=== PATIENT | female | born 1965 | race Hispanic/Latino ===

== ENCOUNTER 2017-05-10 14:22 | Outpatient (CLI) | payer OTHER ==
--- NOTE | 2017-05-10 15:40 | MMO ---
BILATERAL SCREENING MAMMOGRAM: Indication: Annual exam. Comparison: 10-27-14, 04-15-16 FINDINGS: This study is interpreted with the assistance of computer aided detection. The breast parenchyma is heterogeneously dense which limits the sensitivity of mammography. There ar e benign scattered densities seen within both the right and left breasts. There are vascular calcifi cations bilaterally. No suspicious mass, cluster of microcalcifications, or area or architectural distortion evident. IMPRESSION: BIRADS 2 - benign. Recommend routine annual mammographic screening. POS: ANNA MARIE
--- NOTE | 2017-05-10 15:44 | BD ---
BONE DENSITOMETRY USING DEXA: HISTORY: Screening for osteoporosis. FINDINGS: Lumbar Spine: BMD (g/cm2) L1 0.843 T-Score: -0.3 Z-Score: -0.7 L2 0.954 T-Score: -0.7 Z-Score: 0.0 L3 0.963 T-Score: -1.1 Z-Score: -0.3 L4 1.005 T-Score: -0.5 Z-Score: 0.3 L1-L4 0.949 T-Score: -0.9 Z-Score: 0.2 Femoral Neck: 0.741 T-Score: -1.0 Z-Score: -0.2 Total Femur: 0.905 T-Score: -0.3 Z-Score: 0.2 Impression: Normal bone mineral density. No evidence of osteopenia/osteoporosis. POS: [facility]
== END 2017-05-10 14:23 | disposition home or self-care (01) ==
LOC: MAMMO 14:22
PROVIDERS: ATTEND Internal Medicine
DX: Z12.31 Encounter for screening mammogram for malignant neoplasm of breast (principal); Z13.820 Encounter for screening for osteoporosis
CPT/HCPCS: 77067; 77080; G0202

== ENCOUNTER 2018-10-29 10:42 | Outpatient (CLI) | payer OTHER, SELFPAY ==
--- NOTE | 2018-10-31 11:11 | MMO ---
Bilateral MAMMO Bilat Screen [facility]. CLINICAL HISTORY: Patient is 53 years old and is seen for screening. The patient has no family history of breast cancer. The patient has no personal history of cancer. VIEWS: The views performed were: bilateral craniocaudal with tomosynthesis and bilateral mediolateral oblique with tomosynthesis. FILMS COMPARED: The present examination has been compared to prior imaging studies performed at [facility] on 01/08/2011, 10/27/2014, 04/13/2016 and 05/10/2017. MAMMOGRAM FINDINGS: There are scattered fibroglandular densities. There are stable benign appearing calcifications seen in both breasts. There are no suspicious masses, calcifications or areas of architectural distortion. There are no suspicious masses, suspicious calcifications, or new areas of architectural distortion. IMPRESSION: THERE IS NO MAMMOGRAPHIC EVIDENCE OF MALIGNANCY. A ROUTINE FOLLOW-UP MAMMOGRAM IN 1 YEAR IS RECOMMENDED. THE RESULTS OF THIS EXAM WERE SENT TO THE PATIENT. ACR BI-RADS Category 2 - Benign finding MAMMOGRAPHY NOTE: 1. A negative mammogram report should not delay a biopsy if a dominant of clinically suspicious mass is present. 2. Approximately 10% to 15% of breast cancers are not detected by mammography. 3. Adenosis and dense breasts may obscure an underlying neoplasm.
== END 2018-10-29 10:43 | disposition home or self-care (01) ==
LOC: BICMAMMO 10:42
PROVIDERS: ATTEND Internal Medicine
DX: Z12.31 Encounter for screening mammogram for malignant neoplasm of breast (principal)
CPT/HCPCS: 77063; 77067

== ENCOUNTER 2019-05-15 08:22 | Outpatient (CLI) | payer OTHER ==
[2019-05-15 10:25] LABS: #Lymphocytes 2.1 thou/uL (1.20-3.40); #Monocytes 0.6 thou/uL (0.11-0.59); #Neutrophils 3.4 thou/uL (1.40-6.50); %Basophils 0.3 % (0.0-1.0); %Eosinophils 0.8 % (0.0-10.0); %Lymphocytes 34.9 % (21.0-51.0); %Monocytes 9.1 % (0.0-10.0); Hemoglobin 13.1 g/dL (12.0-16.0); Mean Corpuscular HGB CONC 32.7 g/dL (32.0-36.0); Mean Corpuscular Hemoglobin 28.8 pg (27.0-31.0); Mean Corpuscular Volume 88.1 fL (78.0-98.0); Mean Platelet Volume 9.8 fL (7.4-10.4); Platelet Count 181 thou/uL (130-400); RBC Distribution Width 12.1 % (11.5-14.5); Red Blood Cell (RBC) Count 4.54 mill/uL (4.20-5.40); White Blood Cell (WBC) Count 6.1 thou/uL (4.8-10.8)
[2019-05-15 10:40] LABS: Hemoglobin A1c 5.2 % (4.0-6.0)
--- NOTE | 2019-05-15 10:43 | RAD ---
PA AND LATERAL VIEWS CHEST: HISTORY: Preoperative evaluation. COMPARISON: 03/19/2010 FINDINGS: The heart size is normal. The lungs are well expanded without lobar consolidation, pneumothoraces or pleural effusions. There are mild degenerative changes in the spine. IMPRESSION: No radiographic evidence of acute cardiopulmonary process. POS: [facility]
[2019-05-15 10:44] LABS: ALT (SGPT) 7 U/L (8-55); AST (SGOT) 16 U/L (5-34); Albumin 4.4 g/dL (3.5-5.0); Alkaline Phosphatase 67 U/L (40-110); Anion Gap 12 mmol/L (10-20); BUN (Urea Nitrogen) 13 mg/dL (9.8-20.1); Bilirubin, Direct 0.3 mg/dL (0.1-0.3); Bilirubin, Total 0.9 mg/dL (0.2-1.2); Calc. Creatinine Clearance 0 mL/min (70-130); Carbon Dioxide 26 mmol/L (22-29); Chloride 104 mmol/L (98-107); Estimated GFR-MDRD Greater than 90; Globulin 2.5 g/dL (2.4-3.5); Glucose 81 mg/dL (70-105); Potassium 4.3 mmol/L (3.5-5.1); Protein, Total 6.9 g/dL (6.0-8.3); Sodium 138 mmol/L (136-145)
== END 2019-05-15 08:23 | disposition home or self-care (01) ==
LOC: LABBT 08:22
PROVIDERS: ATTEND Surgery
DX: Z01.818 Encounter for other preprocedural examination (principal); N99.524 Stenosis of incontinent stoma of urinary tract
CPT/HCPCS: 71046; 80053; 80076; 83036; 85025; 93005; 93010

== ENCOUNTER 2019-05-22 06:56 | Inpatient (IN) | payer OTHER ==
[2019-05-15 08:47] VITALS: BMI 23.2
[2019-05-22] MEDS ORDERED: Heparin 5,000 UNITS/ML VIAL ONE (07:27)
[2019-05-22] MEDS ORDERED: Bupivacaine/Epinephrine 0.25% 30 ML VIAL ONE (07:34)
[2019-05-22] MEDS ORDERED: Midazolam HCl 2 mg/2 ml Vial ONE (07:40)
[2019-05-22] MEDS ORDERED: Fentanyl 100 MCG/2 ML VIAL ONE ×3 (07:52→10:24)
[2019-05-22] MEDS ORDERED: diphenhydrAMINE 50 MG/ML VIAL IVP PRN (09:46)
[2019-05-22] MEDS ORDERED: Dextrose 50% Abboject 50 ML SYRINGE SLOW IVP PRN (09:46)
[2019-05-22] MEDS ORDERED: hydrALAZINE 20 MG/ML VIAL SLOW IVP PRN (09:46)
[2019-05-22] MEDS ORDERED: Promethazine HCl 25 MG/ML VIAL IM PRN (09:46)
[2019-05-22] MEDS ORDERED: Morphine 2 MG/ML SYRINGE SLOW IVP PRN (09:46)
[2019-05-22] MEDS ORDERED: Morphine 4 MG/ML VIAL SLOW IVP PRN (09:46)
[2019-05-22] MEDS ORDERED: Dextrose 5% in Water 1,000 ML IV PRN (09:46)
[2019-05-22] MEDS ORDERED: Ondansetron PF 4 MG/2 ML Vial IVP PRN (09:46)
[2019-05-22] MEDS ORDERED: Sodium Chloride 0.9% (PF) 10 ML VIAL FS PRN (10:19)
--- NOTE | 2019-05-22 10:34 | OP ---
DATE OF PROCEDURE: 05/22/2019 PREOPERATIVE DIAGNOSIS: Dysphagia. PROCEDURES PERFORMED: 1. Laparoscopic lysis of adhesions. 2. Laparoscopic removal of lap band and port. INDICATIONS: A 54-year-old female who had a lap band in 2007, who over the last year has had progressive dysphagia despite an empty band. A barium swallow showed that it was a near total obstruction. FINDINGS: She had a midline incision for hysterectomy and there was incredible amount of adhesions, very dense and thick adhesions, bowel stuck to the wall. The lap band was found to be intact and was removed entirely. DESCRIPTION OF PROCEDURE: After informed consent was obtained, the patient was taken to the operating room and given general endotracheal anesthesia. She was placed in supine position. Her abdomen was prepped and draped in the usual fashion. Local anesthesia was infiltrated subcutaneously and deep and a 5-mm incision was performed far left lateral abdominal wall as she had a midline hypertrophic scar. A Veress needle was inserted. Drop test was performed. Pneumoperitoneum was created to a volume of 2 L of carbon dioxide. Utilizing a bladeless 5-mm trocar and 0-degree laparoscope, direct visual entry in the abdominal cavity was performed. Pneumoperitoneum was then created to a pressure of 15 mmHg. The space that I entered was very small. The adhesions were extensive and entirely left upper quadrant and midline, so I found another space, where I could put a 5-mm port and a laparoscopic lysis of adhesions was performed utilizing the LigaSure and Metzenbaum scissors. I was able to then free up the area and identified the tubing and the port. The liver was already adhered to the anterior abdominal wall, so a liver retractor was not necessary. The 2nd 5-mm port was converted to a 12-mm port and then a 3rd 5-mm port was placed midline as the adhesions were lysed. This allowed us to divide the lap band tubing, traced the lap band tubing back down to the buckle. The buckle was dissected out using blunt and sharp dissection. Then, the band was unbuckled and the capsule was incised both on the right and left side. Then, the band was removed from around the esophagus, stomach and removed from the abdomen. Hemostasis was assured. Trocars and retractors were removed. A 4th incision had to be made over the port and the port was dissected out. Hemostasis was assured. Subcu was reapproximated with interrupted 3-0 Vicryl. Skin was closed with interrupted 4-0 Rapide. Dermabond applied. The patient tolerated the procedure well, transferred to Recovery in good condition. Sponge and needle count verified correct x2. Job ID: [id number]
--- NOTE | 2019-05-22 10:36 | HP ---
CHIEF COMPLAINT: Severe dysphagia. HISTORY OF PRESENT ILLNESS: The patient is a 54-year-old female, who had a Lap-band placed in 2007. She has developed dysphagia and reflux over the past year. Barium swallow shows a near obstruction despite an empty band. She is here for removal of band and port. PAST MEDICAL HISTORY: Bipolar depression. PAST SURGICAL HISTORY: She had a Lap-band in February of 2008, ovarian cystectomy, back surgery, NovaSure ablation, bilateral tubal ligation, and a hysterectomy. MEDICATIONS: 1. Estradiol. 2. Wellbutrin. 3. Risperidone. 4. Depakote. ALLERGIES: SHE HAS NO KNOWN DRUG ALLERGIES. FAMILY HISTORY: Spina bifida. SOCIAL HISTORY: No tobacco. Occasional alcohol. She works as a senior medical technologist. PHYSICAL EXAMINATION: VITAL SIGNS: Height 69, weight 151, body mass index 22.3. GENERAL: Well-developed, well-nourished female, in no apparent distress. HEENT: Unremarkable. LUNGS: Clear. HEART: Regular rate and rhythm. ABDOMEN: Soft, nondistended, nontender. There is palpable port in the left upper quadrant. EXTREMITIES: Good pulses. No pedal edema. ASSESSMENT: Lap-band obstruction. PLAN: Laparoscopic removal of Lap-band and port. CONSENT: I have discussed the planned procedure as well as risk of bleeding; infection; injury to esophagus, spleen, loops of bowel; need to open; she understands and gives informed consent. Job ID: [id number]
[2019-05-22] MEDS: Ketorolac Tromethamine 30 MG/ML VIAL IVP SCH ×2 (11:51→17:19)
[2019-05-22] MEDS: D5 1/2 NS w/20 mEq KCL 1,000 ML IV SCH ×2 (11:51→18:00)
[2019-05-22] MEDS: CEFAZOLIN 2 GM in Premix Bag 1 BAG IVPB SCH (15:23)
[2019-05-22] MEDS: Hydrocodone-Acetamin 15 ML UDCUP PO PRN ×2 (15:24→20:15)
[2019-05-23] MEDS: Ketorolac Tromethamine 30 MG/ML VIAL IVP SCH ×2 (00:23→05:21)
[2019-05-23] MEDS: CEFAZOLIN 2 GM in Premix Bag 1 BAG IVPB SCH (00:24)
[2019-05-23] MEDS: D5 1/2 NS w/20 mEq KCL 1,000 ML IV SCH ×2 (02:12→09:06)
[2019-05-23] MEDS: Hydrocodone-Acetamin 15 ML UDCUP PO PRN ×2 (05:19→09:39)
[2019-05-23 05:50] LABS: #Lymphocytes 2.1 thou/uL (1.20-3.40); #Monocytes 0.8 thou/uL (0.11-0.59); #Neutrophils 4.8 thou/uL (1.40-6.50); %Basophils 0.6 % (0.0-1.0); %Eosinophils 0.5 % (0.0-10.0); %Lymphocytes 27.2 % (21.0-51.0); %Neutrophils 61.7 % (42.0-75.0); Hemoglobin 11.3 g/dL (12.0-16.0); Mean Corpuscular HGB CONC 33.1 g/dL (32.0-36.0); Mean Corpuscular Hemoglobin 29.1 pg (27.0-31.0); Mean Platelet Volume 9.9 fL (7.4-10.4); Platelet Count 132 thou/uL (130-400); RBC Distribution Width 12.2 % (11.5-14.5); Red Blood Cell (RBC) Count 3.88 mill/uL (4.20-5.40); White Blood Cell (WBC) Count 7.8 thou/uL (4.8-10.8)
[2019-05-23] MEDS ORDERED: Enoxaparin Sodium 40 MG/0.4 ML SYRINGE SC SCH (06:00)
[2019-05-23 06:07] LABS: Anion Gap 9 mmol/L (10-20); BUN (Urea Nitrogen) 7 mg/dL (9.8-20.1); Calc. Creatinine Clearance 120 mL/min (70-130); Calcium 8.5 mg/dL (7.8-10.44); Carbon Dioxide 29 mmol/L (22-29); Chloride 107 mmol/L (98-107); Estimated GFR-MDRD Greater than 90; Glucose 97 mg/dL (70-105); Potassium 3.6 mmol/L (3.5-5.1); Sodium 141 mmol/L (136-145)
--- NOTE | 2019-05-23 07:26 | PDOC.GSPN ---
Surgery Progress Note: Subj - Subjective Patient reports: no new complaints, feels better, positive flatus, pain well controlled, tolerating liquids well, no bowel movement Narrative: pt slept well with no overnight events. has moderate pain on the right side that is tolerable with current pain medications. pt has not have BM, but has passed gas this morning. pt has tolerated ambulation well. pt has concerns about work related issue. she is scheduled to work on Monday, but may not be ready for the heavy lifting required by her job by then. Surgery Progress Note: Obj - Vital signs Vital signs: Vital Signs - Most Recent Temp Pulse Resp BP Pulse Ox 97.5 F L 60 16 107/68 98 05/23/19 04:27 05/23/19 04:27 05/23/19 04:27 05/23/19 04:27 05/23/19 04:27 - Physical Exam General: no distress, moderate pain Cardiovascular: regular rate and rhythm Respiratory: clear to auscultation, normal expansion, normal respiratory effort , breath sounds present Abdomen: soft, non tender, positive bowel sounds Psychiatric: oriented to time, oriented to person, oriented to place Wound: healing well. negative: drainage, erythma/edema Surgery Progress Note: Results - Labs Result Diagrams: 05/23/19 05:24 05/23/19 05:24 Lab results: Laboratory Results - last 24 hr 05/23/19 05/23/19 05:24 05:24 WBC 7.8 RBC 3.88 L Hgb 11.3 L Hct 34.1 L MCV 88.0 MCH 29.1 MCHC 33.1 RDW 12.2 Plt Count 132 MPV 9.9 Neutrophils % 61.7 Lymphocytes % 27.2 Monocytes % 10.0 Eosinophils % 0.5 Basophils % 0.6 Neutrophils # 4.8 Lymphocytes # 2.1 Monocytes # 0.8 H Eosinophils # 0.0 Basophils # 0.0 Sodium 141 Potassium 3.6 Chloride 107 Carbon Dioxide 29 Anion Gap 9 L BUN 7 L Creatinine 0.60 Estimated GFR (MDRD) Greater than 90 Glucose 97 Calcium 8.5 Surgery Progress Note: A/P - Problem (1) History of removal of laparoscopic gastric banding device Current Visit: Yes Code(s): Z98.84 - BARIATRIC SURGERY STATUS Status: Acute - Plan Plan: continue ambulation observe for BM continue current pain medications advance diet as tolerated
[2019-05-23 07:37] VITALS: BP 110/68
[2019-05-23 07:54] VITALS: TEMP 97.2
[2019-05-23] MEDS ORDERED: FLU VACC QS2019-20(6MOS UP)/PF 60 MCG/0.5 ML SYRINGE IM ONE (09:00)
[2019-05-23] MEDS ORDERED: Pantoprazole 40 MG VIAL IVP SCH (09:00)
--- NOTE | 2019-05-23 10:23 | DIS ---
DATE OF ADMISSION: 05/22/2019 DATE OF DISCHARGE: 05/23/2019 DISCHARGE DIAGNOSES: Obstructing lap band, extensive intraabdominal adhesions. PROCEDURES DURING ADMISSION: Laparoscopic lysis of adhesions, laparoscopic removal of lap band and port. HOSPITAL COURSE: The patient was admitted, taken to the operating room. She had an interval laparotomy done emergent for hysterectomy through a large midline incision. So, started the procedure, I had to go lateral and enter the abdomen and take down quite a bit of adhesions just to free up the space to be able to remove the lap band. Lap band was removed and postoperatively, she did fine. I observed her overnight. She is doing well. Her pain is controlled on p.o. medications. She is tolerating liquids well. She is discharged home on hydrocodone and Zofran. She will follow up with me in 2 weeks. Job ID: [id number]
[2019-05-24] MEDS ORDERED: Enoxaparin Sodium 40 MG/0.4 ML SYRINGE SC SCH (09:00)
== END 2019-05-23 09:58 | disposition home or self-care (01) | DRG 328 ==
LOC: SDC 06:56 → SURG A 09:47
PROVIDERS: ADMIT Surgery; ATTEND Surgery
PROC: 0DP64CZ Removal of Extraluminal Device from Stomach, Percutaneous Endoscopic Approach (ICD-10-PCS; principal; 2019-05-22)
PROC: 0DNU4ZZ Release Omentum, Percutaneous Endoscopic Approach (ICD-10-PCS; 2019-05-22)
DX: K95.09 Other complications of gastric band procedure (principal); R13.10 Dysphagia, unspecified; F31.9 Bipolar disorder, unspecified; K66.0 Peritoneal adhesions (postprocedural) (postinfection); Y73.8 Miscellaneous gastroenterology and urology devices associated with adverse incidents, not elsewhere classified; Z90.710 Acquired absence of both cervix and uterus; Z98.51 Tubal ligation status
CPT/HCPCS: 36415; 80048; 85025; 90471; 90686; C9113; G0008; J0690; J1644; J1650; J1885; J2250; J3010

== ENCOUNTER 2019-12-25 09:49 | Outpatient (CLI) | payer OTHER ==
--- NOTE | 2019-12-25 15:57 | MMO ---
Bilateral MAMMO Bilat Screen [facility]. CLINICAL HISTORY: Patient is 54 years old and is seen for screening. The patient has no family history of breast cancer. The patient has no personal history of cancer. VIEWS: The views performed were: bilateral craniocaudal with tomosynthesis and bilateral mediolateral oblique with tomosynthesis. FILMS COMPARED: The present examination has been compared to prior imaging studies performed at [facility] on 10/27/2014, 04/13/2016, 05/10/2017 and 10/29/2018. This study has been interpreted with the assistance of computer-aided detection. MAMMOGRAM FINDINGS: There are scattered fibroglandular densities. Benign calcifications are noted bilaterally. There is suggestion of a nodule in the left outer breast. In the right breast, there are no suspicious masses, calcifications or areas of architectural distortion. IMPRESSION: FINDING IN THE LEFT BREAST REQUIRES ADDITIONAL EVALUATION. SPOT COMPRESSION IS RECOMMENDED. AN ULTRASOUND EXAM IS RECOMMENDED. ADDITIONAL IMAGING. THE RESULTS OF THIS EXAM WERE SENT TO THE PATIENT. ACR BI-RADS Category 0 - Incomplete: Need additional imaging evaluation. [facility] will notify the patient of the need for additional imaging services. MAMMOGRAPHY NOTE: 1. A negative mammogram report should not delay a biopsy if a dominant of clinically suspicious mass is present. 2. Approximately 10% to 15% of breast cancers are not detected by mammography. 3. Adenosis and dense breasts may obscure an underlying neoplasm. Reported by: SAMMY LIVINGSTON MD Electonically Signed: [id number]
== END 2019-12-25 09:50 | disposition home or self-care (01) ==
LOC: BICMAMMO 09:49
PROVIDERS: ATTEND Student in an Organized Health Care Education/Training Program
DX: Z12.31 Encounter for screening mammogram for malignant neoplasm of breast (principal)
CPT/HCPCS: 77063; 77067

== ENCOUNTER 2019-12-30 09:50 | Outpatient (CLI) | payer OTHER ==
--- NOTE | 2019-12-30 10:33 | MMO ---
Left Breast MAMMO Unilat Diag DDI LT+CLARA. CLINICAL HISTORY: Patient is 54 years old and is seen for diagnostic exam. The patient has no family history of breast cancer. The patient has no personal history of cancer. VIEWS: The views performed were: left craniocaudal spot compression with tomosynthesis; left mediolateral oblique spot compression with tomosynthesis; and left mediolateral with tomosynthesis. FILMS COMPARED: The present examination has been compared to prior imaging studies performed at [facility] on 05/10/2017, 10/29/2018, 12/25/2019 and 12/30/2019. This study has been interpreted with the assistance of computer-aided detection. MAMMOGRAM FINDINGS: There are scattered fibroglandular densities. Additional views were performed. Left breast nodule persists and corresponds to a solid mass at 5:00 on US IMPRESSION: FINDING IN THE LEFT BREAST IS SUSPICIOUS. AN ULTRASOUND-GUIDED BREAST BIOPSY IS RECOMMENDED. THE RESULTS OF THIS EXAM WERE SENT TO THE PATIENT. ACR BI-RADS Category 4 - Suspicious abnormality - biopsy should be considered MAMMOGRAPHY NOTE: 1. A negative mammogram report should not delay a biopsy if a dominant of clinically suspicious mass is present. 2. Approximately 10% to 15% of breast cancers are not detected by mammography. 3. Adenosis and dense breasts may obscure an underlying neoplasm. Reported by: SAMMY LIVINGSTON MD Electonically Signed: [id number]
--- NOTE | 2019-12-30 11:37 | ULT ---
LEFT BREAST ULTRASOUND: HISTORY: Abnormal mammogram. FINDINGS: Correlation is made with the mammograms of 12/25/2019 and today. There is a well-circumscribed nonshadowing solid mass at the 5 o'clock position, 3 cm from the nipple measuring 1.4 x 0.8 x 1 cm. IMPRESSION: BIRADS category 4 - suspicious ultrasound. Ultrasound-guided biopsy is recommended. Discussed in person with the patient at 10:25 a.mOz NORRIS
--- NOTE | 2019-12-30 13:32 | MMO ---
FILMS COMPARED: The present examination has been compared to prior imaging studies performed at [facility] on 10/29/2018, 12/25/2019 and 12/30/2019. MAMMOGRAM FINDINGS: Left biopsy clip has been placed in the region of the mass. IMPRESSION: FINDING IN THE LEFT BREAST IS CONFIRMED UTILIZING POST PROCEDURE MAMMOGRAM. Reported by: SAMMY LIVINGSTON MD Electonically Signed: [id number]
--- NOTE | 2019-12-30 14:24 | ULT ---
PROCEDURE: US Breast Bx US Guided Ultrasound guided left breast biopsy marker clip placement PROVIDED CLINICAL HISTORY: Left breast mass. Biopsy was recommended. COMPARISON: Limited ultrasound left breast on 12/30/2019 at 1027 hours. TECHNIQUE: The procedure including the risks and complications were explained to the patient, and informed conse nt was obtained. The patient was placed on the sonography table in the supine position. Limited sonographic evaluation of the right breast was performed. A hypoechoic mass at the 4 to 5:00 position left breast was localized corresponding to prior ultrasound examination. An area was marked and then meticulously prepped and draped in usual sterile fashion. The skin and subcutaneous tissues at the intended puncture site were infiltrated with buffered 1% lid ocaine for local anesthesia. A small skin incision was made. A 14-gauge core biopsy needle was advanced utilizing concurrent real-time ultrasound guidance, and a total of four 14-gauge core needle biopsy specimens were obtained through the mass. A biopsy marker clip was then deployed in the mass utilizing concurrent ultrasound guidance. A dry st erile dressing was placed after hemostasis was achieved with direct pressure. Post biopsy mammogram demonstrates biopsy marker clip at site of left breast mass on mammographic evaluation. The patient tolerated the procedure well and without immediate complication. IMPRESSION: 1. Technically successful ultrasound-guided left breast mass biopsy. 2. Technically successful left breast biopsy marker clip placement. 3. Pathology results are pending.
== END 2019-12-30 09:51 | disposition home or self-care (01) ==
LOC: BICMAMMO 09:50
PROVIDERS: ATTEND Student in an Organized Health Care Education/Training Program
DX: R92.8 Other abnormal and inconclusive findings on diagnostic imaging of breast (principal); N63.20 Unspecified lump in the left breast, unspecified quadrant
CPT/HCPCS: 19083; 88305; G0279

== ENCOUNTER 2020-05-12 17:17 | Outpatient (CLI) | payer OTHER ==
--- NOTE | 2020-05-12 19:58 | RAD ---
LUMBAR SPINE SERIES FOUR VIEWS INCLUDING FLEXION AND EXTENSION 05/12/20 HISTORY: Low back pain. Vertebral bodies are normal in height. Degenerative osteophytes are seen along the course of the spin e. There is severe disc narrowing at L5-S1. No spondylolisthesis and no abnormal motion on flexion or extension. 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 POS: OFF
== END 2020-05-12 17:18 | disposition home or self-care (01) ==
LOC: SCSRAD 17:17
PROVIDERS: ATTEND Student in an Organized Health Care Education/Training Program
DX: M54.5 Low back pain (principal); M47.816 Spondylosis without myelopathy or radiculopathy, lumbar region
CPT/HCPCS: 72120

== ENCOUNTER 2021-01-27 09:25 | Outpatient (CLI) | payer BC | END 2021-01-27 09:26 | disposition home or self-care (01) | LOC: SCSMRI 09:25 | PROVIDERS: ATTEND Family Medicine | DX: M96.1 Postlaminectomy syndrome, not elsewhere classified (principal); G89.4 Chronic pain syndrome; M51.16 Intervertebral disc disorders with radiculopathy, lumbar region; M47.26 Other spondylosis with radiculopathy, lumbar region | CPT/HCPCS: 72148 ==